=== PATIENT | male | born 1970 | race Hispanic/Latino ===

== ENCOUNTER 2018-01-29 08:51 | Day surgery (SDC) | payer OTHER ==
[~2018-01-29 08:51] MED LIST: ANCEF/STERILE WATER 2 GM/20 ML IV NR
[2018-01-29] MEDS ORDERED: XYLOCAINE MPF 2% ONE (10:18)
[2018-01-29] MEDS ORDERED: DIPRIVAN 10 MG/ML IV ONE (10:18)
[2018-01-29] MEDS ORDERED: SUBLIMAZE ONE (10:18)
[2018-01-29] MEDS ORDERED: NACL BACTERIOSTATIC INFILTRATI ONE (10:43)
--- NOTE | 2018-01-29 10:56 | Anesthesia Day of Surgery ---
Anesthesia Day of Surgery - Day of Surgery Patient Examined: Yes Patient H&P Reviewed: Yes Patient is NPO: Yes
--- NOTE | 2018-01-29 10:56 | Anesthesia Consultation ---
Anesthesia Consult and Med Hx Date of service: 01/29/18 - Airway Anesthetic Teeth Evaluation: Good ROM Head & Neck: Adequate Mental/Hyoid Distance: Adequate Mallampati Class: Class II Intubation Access Assessment: Good - Pulmonary Exam CTA: Yes - Cardiac Exam Cardiac Exam: No Murmur - Pre-Operative Health Status ASA Pre-Surgery Classification: ASA1 Proposed Anesthetic Plan: General - Pulmonary Hx Smoking: No Hx Sleep Apnea: Yes (DX SLEEP APNEA WITH CPAP USE) - Cardiovascular System Hx Hypertension: No - Central Nervous System Hx Seizures: Yes (X 1999-UNKNOWN CAUSE , NEVER PLACED ON MEDS) - Other Systems Hx Cancer: No
[2018-01-29] MEDS ORDERED: ZOFRAN IV PRN (10:57)
[2018-01-29] MEDS ORDERED: DILAUDID IV PRN (10:57)
[2018-01-29] MEDS ORDERED: LACTATED RINGERS 1,000 ML IV SCH (11:00)
[2018-01-29] MEDS ORDERED: VERSED IV NR (11:00)
[2018-01-29] MEDS ORDERED: ZOFRAN ONE (11:53)
--- NOTE | 2018-01-29 11:58 | Short Stay Summary ---
Short Stay Documentation Date of service: 01/29/18 - History H&P: obtained from office - Allergies and Medications Current Medications: Allergies No Known Allergies Allergy (Verified 01/26/18 12:40) Home Medications Medication Instructions Recorded Confirmed Last Taken Type Ciprofloxacin HCl [Cipro] 500 mg PO BID 01/26/18 01/26/18 01/28/18 History oxyCODONE /ACETAMINOPHEN [Percocet 1 tab PO Q6HR PRN 01/26/18 01/26/18 01/28/18 History 5/325] Active Medications Cefazolin Sodium (Ancef/Sterile Water 2 Gm/20 Ml) 2 gm IV PREOP NR Stop: 01/29/18 12:00 Hydromorphone HCl (Dilaudid) 0.5 mg IV Q10MIN PRN PRN Reason: Pain , Severe (7-10) Stop: 01/29/18 13:00 Lactated Ringer's (Lactated Ringers) 1,000 mls @ 100 mls/hr IV DIRECT LAUREN Last Admin: 01/29/18 10:55 Dose: 100 mls/hr Midazolam HCl (Versed) 2 mg IV PREOP NR Stop: 01/29/18 23:59 Last Admin: 01/29/18 10:56 Dose: 2 mg Ondansetron HCl (Zofran) 4 mg IV ONCE PRN PRN Reason: Nausea And Vomiting Stop: 01/29/18 12:30 - Brief post op/procedure progress note Date of procedure: 01/29/18 Pre-op diagnosis: rt renal stone Post-op diagnosis: same Procedure: rt eswl Anesthesia: GETA Estimated blood loss: none Pathology: none Condition: stable - Hospital course Hospital course: norco & post op info on chart - Disposition Condition at discharge: Stable Disposition: DC-01 TO HOME OR SELFCARE Short Stay Discharge Plan Follow up with: PRIMARY CARE, [Primary Care Provider] - 7 Days
[2018-01-29 13:00] VITALS: BP 129/85
--- NOTE | 2018-01-29 13:08 | Post Anesthesia Evaluation ---
- Post Anesthesia Evaluation Patient Participated: Yes Airway Patent: Yes Stable Respiratory Function: Yes Nausea/Vomiting: No Temp > 96.8F: Yes Pain Manageable: Yes Adequeate Hydration: Yes Anesthesia Complications: No
--- NOTE | 2018-01-29 13:11 | Operative Report ---
PREOPERATIVE DIAGNOSIS: Right renal stone, status post stent placement, 6 mm. POSTOPERATIVE DIAGNOSIS: Right renal stone, status post stent placement, 6 mm. PROCEDURE: Right extracorporal shock wave lithotripsy. SURGEON: Christiano Kaufman MD ANESTHESIA: General. ESTIMATED BLOOD LOSS: Minimal. FLUIDS: Crystalloid. COMPLICATIONS: No complications. INDICATIONS: This 47-year-old gentleman referred by Dr. Freitas for lithotripsy. The patient had emergent cystoscopy, stent placement for right flank pain. He was found to have a 6 mm stone. Risks, benefits, and complications were explained. The patient agreed to proceed. DESCRIPTION OF PROCEDURE: The patient was taken to the operative suite, placed in a supine position. After adequate general anesthesia, his stone was localized in 2 planes using fluoroscopy. Extracorporal shock wave lithotripsy was administered with maximum kV of 6 2500 shocks. Some fragmentation of his stone could be appreciated. He tolerated the procedure well. He was extubated, taken to recovery room. He will go home on [place] and follow up in the office. Strain his urine for stone. JOB# [id number] CHRISTINE/BETO
== END 2018-01-29 13:19 | disposition home or self-care (01) ==
LOC: OR 08:51
PROVIDERS: ATTEND Urology
DX: N20.0 Calculus of kidney (principal); G47.30 Sleep apnea, unspecified; K21.9 Gastro-esophageal reflux disease without esophagitis; Z99.89 Dependence on other enabling machines and devices; Z98.890 Other specified postprocedural states
CPT/HCPCS: 50590; J0690; J2250; J2405; J2704; J3010; J7120